=== PATIENT | female | born 1995 | race Caucasian/White ===

== ENCOUNTER 2018-11-03 18:21 | Observation (INO) | payer BC ==
[~2018-11-03] VITALS: Ht 175.3 cm; Wt 74.5 kg
[~2018-11-03 18:21] MED LIST: ACET250T22 PO; CLON0.5T14 PO; MAGN400T27 PO; NORT10CA3 PO; PROC10TA10 PO; VERA120C9 PO; [UNRECOGNIZED DRUG - OTHER]; [UNRECOGNIZED DRUG - OTHER]; [UNRECOGNIZED DRUG - OTHER]; vitamin b
[2018-11-03] MEDS ORDERED: HYDROmorphONE 0.5 MG/0.5 ML SYG IV STA (20:03)
[2018-11-03] MEDS ORDERED: PROCHLORPERAZINE 10 MG INJ IV ONE (20:30)
[2018-11-03] MEDS ORDERED: DIPHENHYDRAMINE 50 MG INJ IV ONE (20:30)
[2018-11-04] VITALS (8 sets, daily range): BP systolic 90–127; BP diastolic 56–88; PULSE 59–101; RESP 16–20; Ht 175.3 cm; Wt 74.5 kg
[2018-11-04] MEDS ORDERED: ONDANSETRON 4 MG INJ IV PRN (01:00)
[2018-11-04] MEDS ORDERED: ACETAMINOPHEN 325 MG TAB PO PRN ×2 (01:00→03:30)
[2018-11-04] MEDS ORDERED: HYDROmorphONE 0.5 MG/0.5 ML SYG IV STA (01:13)
[2018-11-04] MEDS ORDERED: NACL 0.9% 3 ML SYG IV SCH (03:30)
[2018-11-04] MEDS ORDERED: HYDROCODONE/APAP (5/325) TAB PO PRN (03:30)
[2018-11-04] MEDS: SOD CHLORIDE 0.9% 1,000 ML IV SCH ×3 (06:17→17:54)
[2018-11-04] MEDS: HYDROCODONE/APAP (5/325) TAB PO PRN ×3 (06:24→18:56)
[2018-11-04] MEDS: ONDANSETRON 4 MG INJ IV PRN ×3 (09:33→21:41)
[2018-11-04] MEDS: PROCHLORPERAZINE 10 MG TAB PO SCH (20:16)
[2018-11-04] MEDS: VERAPAMIL (SR) 120 MG TAB PO SCH (20:16)
[2018-11-04] MEDS: ACETAZOLAMIDE 250 MG TAB PO SCH (20:16)
[2018-11-04] MEDS: NORTRIPTYLINE 10 MG CAP PO SCH (20:16)
[2018-11-04] MEDS ORDERED: KETOROLAC 15 MG INJ IV STA (21:02)
[2018-11-04] MEDS ORDERED: KETOROLAC 15 MG INJ ONE (21:05)
[2018-11-04] MEDS ORDERED: LORAZEPAM 2 MG INJ ONE (21:05)
[2018-11-04] MEDS ORDERED: LORAZEPAM 2 MG INJ IV ONE ×2 (21:30)
[2018-11-04] MEDS ORDERED: ASA/ACETAMINOPHEN/CAFF TAB PO ONE (22:00)
[2018-11-05 02:07] VITALS: BP 102/60; PULSE 74; RESP 18
[2018-11-05] MEDS: HYDROCODONE/APAP (5/325) TAB PO PRN ×3 (03:26→18:26)
[2018-11-05 08:00] VITALS: BP 119/61; PULSE 84; RESP 19
[2018-11-05] MEDS: MAGNESIUM OXIDE 400 MG TAB PO SCH (08:52)
[2018-11-05] MEDS: VERAPAMIL (SR) 120 MG TAB PO SCH ×2 (08:52→20:44)
[2018-11-05] MEDS: PROCHLORPERAZINE 10 MG TAB PO SCH ×3 (08:52→20:44)
[2018-11-05] MEDS: ACETAZOLAMIDE 250 MG TAB PO SCH ×2 (08:52→20:44)
[2018-11-05] MEDS: ONDANSETRON 4 MG INJ IV PRN ×2 (12:23→18:25)
[2018-11-05 13:46] VITALS: BP 96/51; PULSE 84; RESP 17
[2018-11-05 17:01] VITALS: BP 110/51; PULSE 70; RESP 17
[2018-11-05 20:15] VITALS: BP 100/57; PULSE 88; RESP 18
[2018-11-05] MEDS: NORTRIPTYLINE 10 MG CAP PO SCH (20:43)
[2018-11-06] MEDS: ONDANSETRON 4 MG INJ IV PRN ×2 (02:14→11:56)
[2018-11-06 02:20] VITALS: BP 102/55; PULSE 78; RESP 18
[2018-11-06 08:00] VITALS: BP 109/66; PULSE 75; RESP 19
[2018-11-06] MEDS: MAGNESIUM OXIDE 400 MG TAB PO SCH (08:36)
[2018-11-06] MEDS: ACETAZOLAMIDE 250 MG TAB PO SCH (08:36)
[2018-11-06] MEDS: VERAPAMIL (SR) 120 MG TAB PO SCH (08:37)
[2018-11-06] MEDS: HYDROCODONE/APAP (5/325) TAB PO PRN ×2 (08:37→15:12)
[2018-11-06] MEDS: PROCHLORPERAZINE 10 MG TAB PO SCH ×2 (08:38→12:44)
[2018-11-06 16:18] VITALS: BP 101/68; PULSE 72; RESP 19
== END 2018-11-06 19:05 | disposition home or self-care (01) ==
LOC: FTE 18:21 → PP2 11-04 00:31 → CANRESERV 11-04 01:08 → PP2 11-04 01:50 → OBSVTOIN 11-05 18:54 → INTOOBSV 11-05 18:54
PROVIDERS: ADMIT Internal Medicine; ATTEND Internal Medicine
DX: R51 Headache (principal); R11.10 Vomiting, unspecified; G93.2 Benign intracranial hypertension
CPT/HCPCS: 36415; 62272; 70450; 70553; 80048; 80053; 80061; 81001; 81025; 82962; 83036; 83735; 84100; 84146; 84443; 85025; 85610; 85730; 95819; 96374; 96375; 96376; 97110; 97116; 97163; 99285; G0378; J1170; J1200; J1885; J2060; J2405; J7030; J0780